=== PATIENT | female | born 1970 | race Caucasian/White ===

== ENCOUNTER → 2023-04-21 | Outpatient (CLI) | payer OTHER, SELFPAY ==
--- NOTE | 2023-04-21 10:03 | VDLE_ITS ---
Reason For Study: HX Venous insufficiency and EVLA RIGHT LEFT CFV is compressible, phasic, and INCOMPETENT CFV is compressible, spontaneous, phasic, for greater than 1.0 second. competent, and demonstrates normal FV is compressible, spontaneous, phasic, augmentation. competent and demonstrates normal FV is compressible, spontaneous, phasic, augmentation. competent and demonstrates normal POP V is compressible, spontaneous, phasic, augmentation. competent and demonstrates normal POP V is compressible, spontaneous, phasic, augmentation. competent and demonstrates normal T/P Trunk is compressible. augmentation. PTV is compressible. T/P Trunk is compressible. RT PerV is compressible. PTV is compressible. HX GSV, SSV, ASV EVLA LT PerV is compressible. perforating vessel 7-8 cm below knee is HX GSV, SSV, ASV EVLA INCOMPETENT for greater than 0.5 seconds and perforating vessel 2-3 cm below knee is measures 0.29 x 0.36 cm. INCOMPETENT for greater than 0.5 seconds and Procedure measures 0.17 x 0.19 cm. This is a venous duplex using B-mode, color flow and spectral Doppler. Exam performed in department. The exam was diagnostic. VL/Venous Duplex US - Rl Extrem Interpretation Summary Deep veins of the lower extremities are bilaterally patent and compressible seg mentally. There is no evidence of deep vein thrombosis on either side. The right common femoral vein is incompetent. Valvular competence appears intact within the proximal deep venous system on th e left . The great saphenous vein, small saphenous vein, and accessory saphenous vein are absent b ilaterally, consistent with prior endothermal ablation procedures. An incompetent perforato r vein is noted 7-8 centimeters below the right knee. An incompetent analytical lead vein is noted 2-3 c entimeters below the left knee. Ordering Physician: Torin Calderon Referring Physician: Torin Calderon Performed By: Quinton, Delta, RVT
== END | disposition home or self-care (01) ==
PROVIDERS: PCP Student in an Organized Health Care Education/Training Program; Referring Provider Surgery; Visit Provider Surgery
DX: I87.2 Venous insufficiency (chronic) (peripheral) (principal)
CPT/HCPCS: 93970